=== PATIENT | female | born 1970 | race Caucasian/White ===

== ENCOUNTER 2017-09-24 11:12 | Emergency (ER) | payer OTHER ==
[~2017-09-24] VITALS: Ht 175.3 cm; Wt 148.8 kg
--- NOTE | ~2017-09-24 | EKG ---
[place] [address] [facility] [place] [address] ELECTROCARDIOGRAM REPORT Name: VIKASH CBARERA Room #: DEP [facility] CAMPUSAisha#: [id number] Admission: 09/24/17 Attend Phys: Discharge: 09/24/17 Date of : 74 Report #: [id number] THIS REPORT FOR: //name// [facility] ED Test Date: 2017-09-24 Test Time: 11:21:06 Pat Name: VIKASH CABRERA Department: Room: Gender: F Docket Clerk: [id number] : 1970 Requested By: Nora Tamayo Order Number: [id number] MD: Dick Coleman Measurements Intervals [place] Rate: 80 P: 18 ID: [id number] QRS: 2 QRSD: 89 T: 25 QT: 387 QTc: 447 Interpretive Statements Sinus rhythm Low voltage, precordial leads Baseline wander in lead(s) I,II,aVR No previous ECG available for comparison Electronically Signed On 09-24-2017 19:56:29 CDT by Dick Coleman [email or web address] <ELECTRONICALLY SIGNED> By: Dick Coleman MD 09/24/171955 20 112 Dick Coleman MD /RJ
[2017-09-24] MEDS ORDERED: LO LOESTRIN FE1 EACH PO (11:46)
[2017-09-24] MEDS ORDERED: LISINOPRIL-HCT1 EACH PO (11:46)
[2017-09-24] MEDS ORDERED: ALEVE220 MG PO (11:47)
[2017-09-24 11:49] LABS: BASOPHILS 0.8 % (0.0-2.0); EOSINOPHILS 0.5 % (0.0-3.0); HEMATOCRIT 38.1 % (37.0-47.0); HEMOGLOBIN 12.9 gm/dL (12.0-15.0); MCH 27.1 pg (26.0-34.0); MCHC 33.7 g/dL (28.0-37.0); MCV 80.4 fL (80.0-100.0); MONOCYTES 3.7 % (1.0-8.0); PLATELET COUNT 376 thou/uL (150-400); RBC 4.74 mil/uL (4.20-5.00); RDW 14.3 % (10.5-14.5); WBC 10.7 thou/uL (4.0-11.0)
[2017-09-24 12:00] LABS: ANION GAP 9 mmol/L (7-16); BUN 14 mg/dL (7-18); CALCIUM 9.1 mg/dL (8.5-10.1); CHLORIDE 103 mmol/L (98-107); CO2 25 mmol/L (21-32); CREATININE 1.1 mg/dL (0.6-1.0); GLUCOSE 121 mg/dL (74-106); POTASSIUM 3.8 mmol/L (3.5-5.1); SODIUM 137 mmol/L (136-145)
[2017-09-24 12:05] LABS: ALBUMIN 3.3 g/dL (3.4-5.0); DIRECT BILIRUBIN 0.2 mg/dL (<0.1-0.3); TOTAL BILIRUBIN 0.6 mg/dL (<0.1-1.0); TOTAL PROTEIN 7.6 g/dL (6.4-8.2)
[2017-09-24 12:10] LABS: TROPONIN-I < 0.04 ng/mL (<0.06)
[2017-09-24 12:51] VITALS: BP 142/85
== END 2017-09-24 12:56 | disposition home or self-care (01) ==
LOC: ER 11:12
PROVIDERS: Emergency Medicine; Physician Assistant
DX: R07.89 Other chest pain (principal); R53.83 Other fatigue; I10 Essential (primary) hypertension